=== PATIENT | male | born 1980 | race Caucasian/White ===

== ENCOUNTER 2017-11-17 15:26 | Emergency (ER) | payer BC, SELFPAY ==
[2017-11-17 15:31] VITALS: BP 129/85; PULSE 70; RESP 18; TEMP 36.7; O2SAT 98
--- NOTE | 2017-11-17 15:39 | DI.RAD_ITS ---
SYMPTOMS/DIAGNOSIS: FALL ON OUTSTRETCHED HAND, PAIN AT CARPOMETACARPAL UNION OF THUMB RIGHT WRIST: No fracture or dislocation is seen. IMPRESSION: Negative right wrist. RIGHT THUMB: No fracture or dislocation is seen. IMPRESSION: Negative right thumb.
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
[2017-11-17] MEDS: Acetaminophen 500 MG TAB 1000 MG PO (15:43)
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
== END 2017-11-17 16:46 | disposition home or self-care (01) ==
LOC: ER 11-18 10:14
PROVIDERS: Emergency Provider Student in an Organized Health Care Education/Training Program
DX: S63.501A Unspecified sprain of right wrist, initial encounter (principal); V18.0XXA Pedal cycle driver injured in noncollision transport accident in nontraffic accident, initial encounter; Y93.55 Activity, bike riding
CPT/HCPCS: 99284; 73110; 73140; 99283; L3807